=== PATIENT | female | born 1990 | race Two or more races ===

== ENCOUNTER 2024-05-02 14:52 | Emergency (ER) | payer MEDICAID ==
[~2024-05-02] VITALS: Ht 172.7 cm; Wt 65.8 kg
[2024-05-02 15:58] LABS: *BILIRUBIN,URIN NEGATIVE (NEGATIVE); *BLOOD, URINE 1+ (NEGATIVE); *CLARITY,URINE CLEAR (CLEAR); *COLOR,URINE YELLOW (YELLOW); *KETONES,URINE NEGATIVE (NEGATIVE); *PROTEIN,URINE NEGATIVE (NEGATIVE); *UROBILINOGEN,URINE 0.2 E.U./dl (NORMAL); LEUKOCYTE ESTERASE ,URINE NEGATIVE (NEGATIVE); NITRITE, URINE NEGATIVE (NEGATIVE); UGLUCOSE NEGATIVE (NEGATIVE)
[2024-05-02 16:06] LABS: *URINE HCG, QUAL NEGATIVE (NEGATIVE)
[2024-05-02 16:54] LABS: BACTERIA,URINE NONE SEEN /HPF (NONE SEEN); RBC,URINE NONE SEEN /HPF (0-3); SQUAMOUS EPITHELIAL CELL,UR FEW /HPF (NONE SEEN); WBC,URINE 0-3 /HPF (0-3)
[2024-05-02] MEDS ORDERED: METOCLOPRAMIDE HCL 10 MG/2 ML VIAL ONE (19:04)
[2024-05-02] MEDS ORDERED: KETOROLAC TROMETHAMINE 30 MG INJ ONE (19:04)
[2024-05-02] MEDS: KETOROLAC TROMETHAMINE 30 MG INJ IVP ONE (19:13)
[2024-05-02] MEDS: IV NORMAL SALINE 1000 ML BAG IV ONE (19:13)
[2024-05-02] MEDS: METOCLOPRAMIDE HCL 10 MG/2 ML VIAL IV ONE (19:13)
[2024-05-02 19:18] LABS: BASOPHILS % (AUTO) 0.2 % (0.0-2.0); EOSINOPHILS # (AUTO) 0.1 K/uL (0.0-0.7); EOSINOPHILS % (AUTO) 1.5 % (0.0-7.0); HEMATOCRIT 37.8 % (31.2-41.9); HEMOGLOBIN 13.2 g/dL (10.9-14.3); LYMPHOCYTES # (AUTO) 1.8 K/uL (0.8-4.8); LYMPHOCYTES % (AUTO) 28.4 % (20.5-51.5); MEAN CORPUSCULAR HEMOGLOBIN 29.9 uug (24.7-32.8); MEAN CORPUSCULAR HGB CONC 35 g/dL (32.3-35.6); MEAN CORPUSCULAR VOLUME 85.5 fL (75.5-95.3); MONOCYTES # (AUTO) 0.4 K/uL (0.1-1.30); MONOCYTES % (AUTO) 7.1 % (0.0-11.0); NEUTROPHILS % (AUTO) 62.8 % (38.5-71.5); PLATELET COUNT (AUTO) 229 K/uL (179-408); RED BLOOD CELL COUNT(AUTO) 4.42 MIL/uL (3.63-4.92); RED CELL DISTRIBUTION WIDTH 12.9 % (12.3-17.7); WHITE BLOOD COUNT (AUTO) 6.3 K/uL (3.8-11.8)
[2024-05-02 19:26] LABS: CALCIUM 8.6 mg/dL (8.5-10.1); CREATININE 0.7 mg/dL (0.6-1.3); POTASSIUM 3.6 mmol/L (3.5-5.1)
[2024-05-02 19:27] LABS: DIFFERENTIAL COMMENT 1
[2024-05-02] MEDS ORDERED: ONDA4TAB11 PO (20:22)
[2024-05-02 20:28] VITALS: BP 119/77; O2SAT 100
== END 2024-05-02 20:29 | disposition home or self-care (01) ==
LOC: ER 14:52
DX: B34.9 Viral infection, unspecified (principal); R53.1 Weakness; R10.2 Pelvic and perineal pain
CPT/HCPCS: 99284; 96374; 96361; 96375; 80048; 81001; 84703; 85025; 36415; J1885; J2765; J7040; A4606; A4663

== ENCOUNTER 2024-05-20 11:55 | Emergency (ER) | payer MEDICAID ==
[~2024-05-20] VITALS: Ht 175.3 cm; Wt 65.8 kg
[~2024-05-20 11:55] MED LIST: ONDA4TAB11 PO
[2024-05-20 11:58] VITALS: O2SAT 99
[2024-05-20] MEDS ORDERED: IBUPROFEN 800 MG TABLET ONE (12:41)
[2024-05-20] MEDS: IBUPROFEN 800 MG TABLET PO ONE (12:44)
[2024-05-20] MEDS ORDERED: IBUP-1957 PO (13:34)
== END 2024-05-20 13:57 | disposition home or self-care (01) ==
LOC: ER 11:55
DX: S16.1XXA Strain of muscle, fascia and tendon at neck level, initial encounter (principal); M54.81 Occipital neuralgia; R51.9 Headache, unspecified; Z79.1 Long term (current) use of non-steroidal anti-inflammatories (NSAID); X58.XXXA Exposure to other specified factors, initial encounter; Y93.89 Activity, other specified; Y92.89 Other specified places as the place of occurrence of the external cause; Y99.8 Other external cause status
CPT/HCPCS: 70450; 72125; A4606; A4663

== ENCOUNTER 2024-10-11 09:44 | Emergency (ER) | payer MEDICAID, OTHER ==
[~2024-10-11] VITALS: Ht 172.7 cm; Wt 63.5 kg
[~2024-10-11 09:44] MED LIST changes: +IBUP-1957 PO
[2024-10-11] MEDS ORDERED: TRIAMCINOLONE ACETONIDE 40 MG/1 ML VIAL IM ONE (10:30)
[2024-10-11 11:01] VITALS: BP 120/80; O2SAT 98
== END 2024-10-11 11:03 | disposition home or self-care (01) ==
LOC: ER 09:46
DX: M67.432 Ganglion, left wrist (principal); M79.642 Pain in left hand; Z79.1 Long term (current) use of non-steroidal anti-inflammatories (NSAID)
CPT/HCPCS: 73130; A4606; A4663; J3301

== ENCOUNTER 2025-02-20 12:05 | Emergency (ER) | payer OTHER ==
[~2025-02-20] VITALS: Ht 172.7 cm; Wt 63.5 kg
[2025-02-20 12:07] VITALS: BP 116/65
[2025-02-20] MEDS ORDERED: TRIAMCINOLONE ACETONIDE 50 MG/5 ML VIAL IM ONE (13:00)
[2025-02-20] MEDS: MISCELLANEOUS MED XX ONE (13:18)
[2025-02-20] MEDS: TRIAMCINOLONE ACETONIDE 50 MG/5 ML VIAL MC ONE (13:19)
[2025-02-20 13:21] VITALS: BP 116/65; TEMP 98.3; O2SAT 98
== END 2025-02-20 13:21 | disposition home or self-care (01) ==
LOC: ER 12:05
DX: M67.432 Ganglion, left wrist (principal); Z79.1 Long term (current) use of non-steroidal anti-inflammatories (NSAID)
CPT/HCPCS: 99283; J3301; A4606; A4663